=== PATIENT | male | born 1985 | race Two or more races ===

== ENCOUNTER 2020-12-12 10:52 | Emergency (ER) | payer OTHER ==
[~2020-12-12] VITALS: Ht 180.3 cm; Wt 65.5 kg
--- NOTE | 2020-12-12 11:10 | NUR ---
EKG done in triage.
--- NOTE | 2020-12-12 11:40 | NUR ---
PT BIB SELF VIA POV. PT REPORTS THAT STARTING FRIDAY HE HAS HAD R SIDED CP. PT ALSO STATES THAT HE HAS HAD RECTAL PAIN AND BRIGHT RED BLOOD WHEN HE WIPES AFTER HAVING A BM. PT RESTING IN [facility], MONITORING IN PLACE, MALCOM AT THIS TIME, [facility]. DR. RIVERA AT BEDSIDE FOR EVAL.
[2020-12-12 12:41] VITALS: BP 113/74
== END 2020-12-12 13:02 | disposition home or self-care (01) ==
LOC: ED 12:45
DX: R07.89 Other chest pain (principal); K64.4 Residual hemorrhoidal skin tags; N43.40 Spermatocele of epididymis, unspecified; R94.31 Abnormal electrocardiogram [ECG] [EKG]
CPT/HCPCS: 76870; 93005; 99284